=== PATIENT | female | born 1960 | race Caucasian/White ===

== ENCOUNTER 2017-03-09 13:06 | Emergency (ER) | payer SELFPAY ==
[~2017-03-09] VITALS: Ht 157.5 cm; Wt 81.7 kg
[~2017-03-09 13:06] MED LIST: ALEVE220 MG PO; MS CONTIN15 MG PO; OXYCONTIN10 MG PO; REMERON45 MG PO; TOPROL XL50 MG PO; TRIAZOLAM0.25 MG PO; ULTRAM50 MG PO; WOMEN'S ONE DA1 EACH PO; ZOCOR40 MG PO
[2017-03-09] MEDS ORDERED: PROTONIX40 MG PO (14:38)
== END 2017-03-09 14:54 | disposition home or self-care (01) ==
LOC: ED 13:06
DX: R10.13 Epigastric pain (principal); I10 Essential (primary) hypertension; Z88.5 Allergy status to narcotic agent; Z79.899 Other long term (current) drug therapy
CPT/HCPCS: 80053; 81001; 83690; 85025; 96374; 96375; 99283; J2405; J7030

== ENCOUNTER 2021-05-28 10:42 | Emergency (ER) | payer SELFPAY ==
[~2021-05-28] VITALS: Ht 157.5 cm; Wt 88.9 kg
[~2021-05-28 10:42] MED LIST changes: +PROTONIX40 MG PO
--- OUTSIDE RECORDS SUMMARY | 2021-05-28 10:44 | XMS ---
PreManage Notification: AMRIT BATEMAN [employer] Events No recent Security Events currently on file [facility] There are no care providers on record at this time. Ryan has no Care Guidelines for this patient. [place] VISIT COUNT (12 MO.) 1 [facility] TOTAL 1 NOTE: Visits indicate total known visits. ED/UCC VISIT TRACKING (12 MO.) 05/28/2021 10:43 [facility] [place] TYPE: Emergency COMPLAINT: - ABD PAIN, BOTH SIDES AND BACK PAIN, L HIP PAIN INPATIENT VISIT TRACKING (12 MO.) No inpatient visits to display in this time frame [email or web address]
[2021-05-28] MEDS ORDERED: ROSUVASTATIN CA10 MG PO (11:26)
[2021-05-28] MEDS ORDERED: TRAZODONE HCL50 MG NG (11:26)
[2021-05-28] MEDS ORDERED: TEMAZEPAM30 MG PO (11:26)
[2021-05-28] MEDS ORDERED: HYDROCODON-ACE1 EA10 PO (14:37)
== END 2021-05-28 15:03 | disposition home or self-care (01) ==
LOC: ED 10:42
DX: S70.02XA Contusion of left hip, initial encounter (principal); S20.213A Contusion of bilateral front wall of thorax, initial encounter; W11.XXXA Fall on and from ladder, initial encounter; I10 Essential (primary) hypertension; Z79.899 Other long term (current) drug therapy
CPT/HCPCS: 71111; 73502; 99283

== ENCOUNTER 2022-07-01 00:18 | Emergency (ER) | payer OTHER ==
[~2022-07-01] VITALS: Ht 157.5 cm; Wt 96.0 kg
[~2022-07-01 00:18] MED LIST changes: +HYDROCODON-ACE1 EA10 PO; +ROSUVASTATIN CA10 MG PO; +TEMAZEPAM30 MG PO; +TRAZODONE HCL50 MG NG
--- OUTSIDE RECORDS SUMMARY | 2022-07-01 00:22 | XMS ---
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 EKeri VISIT COUNT (12 MO.) 1 MAIRA [facility] TOTAL 1 NOTE: Visits indicate total known visits. ED/UCC VISIT TRACKING (12 MO.) 07/01/2022 00:19 [facility] [place] TYPE: Emergency COMPLAINT: - CONCERN OVER X RAY INPATIENT VISIT TRACKING (12 MO.) No inpatient visits to display in this time frame [email or web address]
[2022-07-01] MEDS ORDERED: PREDNISONE20 MG PO (02:00)
[2022-07-01] MEDS ORDERED: K-TAB ER20 MEQ PO (02:00)
[2022-07-01] MEDS ORDERED: VENTOLIN HFA18 GM INH (02:00)
--- NOTE | 2022-07-02 20:35 | EKG ---
[facility] [address] [place], [place] [address] Signed Normal sinus rhythm Normal ECG No previous ECGs available Confirmed by ESTELLE REESE MD ([id number]) on 07/02/2022 8:34:54 PM Electronically Signed By: ESTELLE REESE MD 07/02/222034 PATIENT NAME: AMRIT BATEMAN Electrocardiogram DATE OF : 58 PHYSICIAN: ESTELLE REESE MD REPORT #: [id number] REPORT IS CONFIDENTIAL AND NOT TO BE RELEASED WITHOUT AUTHORIZATION
== END 2022-07-01 02:22 | disposition home or self-care (01) ==
LOC: ED 00:18
DX: J20.8 Acute bronchitis due to other specified organisms (principal); E87.6 Hypokalemia; I10 Essential (primary) hypertension; Z86.16 Personal history of COVID-19; Z88.5 Allergy status to narcotic agent; Z79.899 Other long term (current) drug therapy
CPT/HCPCS: 36415; 80053; 83880; 84484; 85025; 93005; 93010; 94640; 96374; 99285-25; A9270; J2930